=== PATIENT | female | born 1985 | race Caucasian/White ===

== ENCOUNTER 2021-05-30 17:36 | Emergency (ER) | payer SELFPAY ==
[2021-05-30] MEDS ORDERED: Ibuprofen 200 MG TAB ONE (18:36)
[2021-05-31 01:28] LABS: SARS-CoV-2 PCR by NAA DETECTED (NotDetected)
== END 2021-05-30 18:51 | disposition home or self-care (01) ==
LOC: ERS 17:36
DX: U07.1 COVID-19 (principal)
CPT/HCPCS: 99283; U0003; U0005

== ENCOUNTER 2022-02-07 11:35 | Emergency (ER) | payer MEDICAID, SELFPAY ==
[2022-02-07 13:29] LABS: Hemoglobin 14.2 g/dL (12.0-16.0); Mean Corpuscular HGB CONC 32.3 g/dL (32.0-36.0); Mean Corpuscular Hemoglobin 27.9 pg (27.0-31.0); Mean Corpuscular Volume 86.5 fL (78.0-98.0); Mean Platelet Volume 9.7 fL (7.4-10.4); Platelet Count 230 thou/uL (130-400); RBC Distribution Width 13.1 % (11.5-14.5); White Blood Cell (WBC) Count 14.9 thou/uL (4.8-10.8)
[2022-02-07 13:50] LABS: ALT (SGPT) 14 U/L (8-55); AST (SGOT) 23 U/L (5-34); Albumin 3.4 g/dL (3.5-5.0); Alkaline Phosphatase 94 U/L (40-110); Anion Gap 13 mmol/L (10-20); BUN (Urea Nitrogen) 10 mg/dL (7.0-18.7); Bilirubin, Total 1.8 mg/dL (0.2-1.2); Calc. Creatinine Clearance 0 mL/min (70-130); Calcium 8.9 mg/dL (7.8-10.44); Carbon Dioxide 25 mmol/L (22-29); Chloride 104 mmol/L (98-107); Globulin 3.6 g/dL (2.4-3.5); Glucose 85 mg/dL (70-105); Potassium 4.7 mmol/L (3.5-5.1); Sodium 137 mmol/L (136-145)
[2022-02-07 13:51] LABS: Band 5 % (5-11); Eosinophils 3 % (0-10); Lymphocytes 8 % (21-51); MDiff Complete? YES; Monocytes 6 % (0-10); Neutrophil 76 % (42-75); RBC Morphology Normal; Reactive Lymphocytes 2 % (0-10)
[2022-02-07 14:28] LABS: Bilirubin Negative (Negative); Blood, Urine Negative (Negative); Clarity Turbid (Clear); Glucose, Urine (Dipstick) Normal (Negative); Ketone, Urine Negative (Negative); Leukocyte Negative Leu/uL (Negative); Nitrite 2+ (Negative); Protein, Urine (Dipstick) 10 mg/dL (Neg-Trace); RBC/HPF 0-3 HPF (0-3); Specific Gravity, Urine 1.028 (1.002-1.036); WBC/HPF 0-3 HPF (0-3)
[2022-02-07] MEDS ORDERED: Clindamycin/D5W 900 mg/50 ml Premix Bag ONE (14:30)
[2022-02-07 14:53] LABS: Unclassified Crystals 2+ HPF (None Seen)
[2022-02-07 14:54] LABS: Bacteria/HPF 3+ HPF (None Seen)
[2022-02-07] MEDS ORDERED: Xylocaine 1% w/ Epi 1:100K 10 ML VIAL ONE (16:09)
[2022-02-07] MEDS ORDERED: Ketorolac Tromethamine 30 MG/ML VIAL ONE (16:11)
== END 2022-02-07 16:42 | disposition home or self-care (01) ==
LOC: ERS 11:35
DX: L03.211 Cellulitis of face (principal); F17.200 Nicotine dependence, unspecified, uncomplicated
CPT/HCPCS: 10160; 70491; 80053; 81003; 81015; 83605; 85025; 87040; 96365; 96366; 96375; J1885; J3490

== ENCOUNTER 2022-12-12 19:24 | Emergency (ER) | payer SELFPAY ==
[2022-12-12] MEDS ORDERED: Lidocaine 1% w/Epinephrine 1:100K 20 ML VIAL ONE (20:00)
== END 2022-12-12 20:39 | disposition home or self-care (01) ==
LOC: ERS 19:24
DX: L70.0 Acne vulgaris (principal); L02.01 Cutaneous abscess of face
CPT/HCPCS: 10060

== ENCOUNTER 2023-07-26 21:43 | Emergency (ER) | payer SELFPAY | END 2023-07-26 23:08 | disposition left against medical advice (07) | LOC: ERS 21:43 | DX: Z53.21 Procedure and treatment not carried out due to patient leaving prior to being seen by health care provider (principal) ==

== ENCOUNTER 2023-11-24 09:13 | Emergency (ER) | payer SELFPAY ==
[2023-11-24] MEDS ORDERED: Lidocaine 1% w/Epinephrine 1:100K 20 ML VIAL ONE (10:16)
== END 2023-11-24 10:58 | disposition home or self-care (01) ==
LOC: ERS 09:13
DX: L02.01 Cutaneous abscess of face (principal); F17.210 Nicotine dependence, cigarettes, uncomplicated
CPT/HCPCS: 10060